=== PATIENT | female | born 1990 | race Caucasian/White ===

== ENCOUNTER 2018-04-19 19:06 | Emergency (ER) | payer MEDICAID, OTHER ==
[2018-04-19 19:28] LABS: URINE BLOOD (Dip) POC 2+ (NEGATIVE); URINE GLUCOSE (Dip) POC Negative (NEGATIVE); URINE KETONES (Dip) POC Negative (NEGATIVE); URINE LEUKOCYTE EST (Dip) POC Trace (NEGATIVE); URINE NITRITE (Dip) POC Negative (NEGATIVE); URINE TOTAL PROTEIN POC Negative (NEGATIVE)
[2018-04-19 19:28] LABS: URINE PH (Dip) POC 6.5 (5.0-8.5)
[2018-04-19] MEDS: CEPHALEXIN 500 MG CAP PO (19:56)
[2018-04-19] MEDS: PHENAZOPYRIDINE 100 MG TAB PO (19:56)
== END 2018-04-19 20:05 | disposition home or self-care (01) ==
LOC: FTE 19:06
DX: R30.0 Dysuria (principal)
CPT/HCPCS: 81003; 81025; 99283